=== PATIENT | male | born 1990 | race Caucasian/White ===

== ENCOUNTER 2018-06-30 20:59 | Emergency (ER) | payer SELFPAY ==
--- NOTE | 2018-06-30 21:00 | ER Report ---
History and Physical Time Seen By MD: 21:00 HPI/ROS CHIEF COMPLAINT: longterm clearance, cut on hand HISTORY OF PRESENT ILLNESS: This is a 27 year old male. He is here with [employer] for a longterm clearance. Hit a window at [employer]. Denies other injuries other than a small cut on right thenar area of palm. Does not want any cleaning, repair or other treatment. No other complaints. Allergies: Coded Allergies: No Known Drug Allergies (Unverified , 06/30/18) Home Meds No Active Prescriptions or Reported Meds Reviewed Nurses Notes: Yes Constitutional Vital Sign - Last 24 Hours 06/30/18 21:01 Temp 99.3 Pulse 87 Resp 14 B/P (MAP) 118/83 Pulse Ox 94 O2 Delivery Room Air Physical Exam General: Alert, no distress. Intoxicated. Eyes: Pupils equal and round no injection. ENT: Normal oral mucosa. Moist mucous membranes. Respiratory: Lungs are clear to auscultation. Cardiac: regular rate and rhythm Musculoskeletal: Extremities have full range of motion. Skin: Small 1cm cut in right thenar area of palm, bleeding controlled. DIFFERENTIAL DIAGNOSIS: After history and physical exam differential diagnosis was considered for longterm clearance, laceration on hand without repair, and intoxication. Medical Decision Making ED Course/Re-evaluation ED Course No other problems noted. He is cleared to be discharged with police to longterm. Patient states last tetanus was a few months ago. Decision to Disposition Date: June 30, 2018 Decision to Disposition Time: 21:04 Depart Departure Latest Vital Signs Vital Signs Date Time Temp Pulse Resp B/P (MAP) Pulse Ox O2 Delivery O2 Flow Rate FiO2 06/30/18 21:01 99.3 87 14 118/83 94 Room Air Impression: Primary Impression: Hand laceration Additional Impression: Intoxication Condition: Improved [facility] New Scripts No Active Prescriptions or Reported Meds Patient Instructions: Laceration Without Closure (ED) Additional Instructions: Wound Care: Wash the wound once a day with soap and water. Dry the wound and apply a small amount of antibiotic ointment with a clean dressing. If the dressing becomes wet or dirty, repeat cleaning and dressing as above. He can always return to the ER for further evaluation if this is looking like it is getting infected. Pain Control: Use Tylenol or ibuprofen for pain. Using and ice pack can help reduce swelling. Problem Qualifiers Primary Impression: Hand laceration Encounter type: initial encounter Foreign body presence: without foreign body Laterality: right Qualified Codes: S61.411A - Laceration without foreign body of right hand, initial encounter ZULEYMA MCCORMICK MD June 30, 2018 21:00
[2018-06-30 21:01] VITALS: BP 118/83
== END 2018-06-30 21:12 | disposition home or self-care (01) ==
LOC: ER 21:04
DX: S61.411A Laceration without foreign body of right hand, initial encounter (principal); F10.129 Alcohol abuse with intoxication, unspecified
CPT/HCPCS: 99281

== ENCOUNTER 2018-07-08 16:41 | Emergency (ER) | payer SELFPAY ==
[2018-07-08] MEDS ORDERED: OLANZapine 10 MG VIAL IM ONLY ONE (17:06)
[2018-07-08] MEDS ORDERED: WATER STERILE(*) 10 ML VIAL 10 ML ONE (17:06)
--- NOTE | 2018-07-08 17:34 | ER Report ---
History and Physical Time Seen By MD: 17:00 Hx. of Stated Complaint: PT PRESENTS WIH SLURRING WORDS, OCC PROFANITY, STUMBLING. FOUND ASLEEP IN A CAR THAT WAS NOT HIS HPI/ROS CHIEF COMPLAINT: Altered mental status, suspected alcohol intoxication HISTORY OF PRESENT ILLNESS: Patient is a 27-year-old male with suspected alcohol intoxication found sleeping in another individuals vehicle. Patient was initially evaluated by police on scene at which time the patient was speaking unintelligibly, not making sense, slurring his words. Patient did have a contusion with hematoma above his left eye prompting emergency department evaluation. Due to the patient's suspected injury, decision was made to complete a CT scan. Glucose was 96 at time of evaluation REVIEW OF SYSTEMS: Patient unwilling to verbalize Allergies: Coded Allergies: No Known Drug Allergies (Unverified , 07/08/18) Home Meds No Active Prescriptions or Reported Meds Unable To Obtain Past Medical: Unable to Obtain/Update Constitutional Vital Sign - Last 24 Hours 07/08/18 07/08/18 07/08/18 07/08/18 16:43 16:43 17:11 17:33 Pulse 123 ??? Resp 20 B/P (MAP) 131/72 131/72 (91) 130/65 (86) Pulse Ox 89 O2 Delivery Room Air 07/08/18 17:41 Pulse 107 Pulse Ox 96 Physical Exam General Appearance: Intoxicated appearing, protecting airway Eyes: Pupils equal and round no pallor or injection. ENT, Mouth: Mucous membranes are moist. Respiratory: There are no retractions, lungs are clear to auscultation. Cardiovascular: Regular rate and rhythm. Gastrointestinal: Abdomen is soft and non tender, no masses, bowel sounds normal. Neurological: Slurred speech, unintelligible speech at times, denies pain aside from handcuffs Skin: Mild ecchymosis and swelling above the left eye without bony deformity or laceration Musculoskeletal: Neck is supple non tender. Extremities are nontender, nonswollen and have full range of motion. DIFFERENTIAL DIAGNOSIS: After history and physical exam differential diagnosis was considered for alcohol intoxication, other substance use, concussion, trauma, intracranial process Medical Decision Making Data Points Laboratory Hematology Test 07/08/18 17:42 Whole Blood Glucose 96 mg/DL (75-110) Chemistry Test 07/08/18 17:42 Whole Blood Glucose 96 mg/DL (75-110) EKG/Imaging Imaging CT Head please see final radiology report. CT imaging showed no acute intracranial pathology or fractures ED Course/Re-evaluation ED Course Patient is 27-year-old male with suspected intoxication found in a vehicle that was not his. PD brought the patient in for evaluation and usp clearance since the patient did have evidence of trauma in the form of a hematoma with mild ecchymosis above the left eye. Glucose level was 96 at time of evaluation. Patient was given 5 mg of intramuscular Zyprexa in order to obtain a CT scan of the head. CT scan of the head was unremarkable intracranial bleed or fractures evident. Patient refused to complete review of systems however physical exam was remarkable for a hematoma and ecchymosis above the left eye, slurred speech, suspected intoxication. Patient remained in handcuffs as a precaution due to intermittent episodes of being belligerent and agitated. Patient was released in police custody Decision to Disposition Date: July 08, 2018 Decision to Disposition Time: 18:20 Depart Departure Latest Vital Signs Vital Signs Date Time Temp Pulse Resp B/P (MAP) Pulse Ox O2 Delivery O2 Flow Rate FiO2 07/08/18 17:41 107 96 07/08/18 17:33 130/65 (86) 07/08/18 16:43 20 Room Air Impression: Primary Impression: Intoxication Condition: Improved Disposition: HOME OR SELF-CARE New Scripts No Active Prescriptions or Reported Meds Patient Instructions: Abuse of Alcohol (ED) Additional Instructions: Please consider alcohol cessation. Please follow-up with her primary care provider in the next 7 days for reevaluation. AMI RICHARD DO July 08, 2018 17:34
[2018-07-08 18:30] VITALS: BP 120/69
--- NOTE | 2018-07-10 15:53 | RADIOLOGY IMAGING REPORT ---
FACILITY: [facility] - [place] PATIENT NAME: Va Briscoe : 1990 MR: [id number] V: [id number] EXAM DATE: ORDERING PHYSICIAN: AMI RICHARD TECHNOLOGIST: Location: [facility] [place] Patient: Va Briscoe : 1990 Visit/Account:[id number] Date of Sevice: 07/08/2018 CT OF THE BRAIN WITHOUT CONTRAST HISTORY: Altered mental status. Intoxicated. PROCEDURE: 3.0 mm contiguous axial sections were performed through the brain. Sagittal and coronal r eformats were submitted. COMPARISON: None FINDINGS: BRAIN: Brain and intracranial structures: There is no mass lesion, hemorrhage or acute infarct. Orbits (included portions): Normal. Scalp: Normal. Skull: Normal. Paranasal sinuses and mastoid air cells (included portions): Mild maxillary mucosal thickening on the right. IMPRESSION: No evidence of acute intracranial abnormality. One of the following dose optimization techniques was utilized in the performance of this exam: Autom ated exposure control; adjustment of the mA and/or kV according to the patient's size; or use of an i terative reconstruction technique. Specific details can be referenced in the facility's radiology C T exam operational policy. Report Dictated By: Ciro Munoz MD at 07/08/2018 6:07 PM Report E-Signed By: Ciro Munoz MD at 07/08/2018 6:14 PM WSN:[id number]
== END 2018-07-08 18:45 | disposition home or self-care (01) ==
LOC: EDUNIT# 16:41 → ER 16:47
DX: F10.920 Alcohol use, unspecified with intoxication, uncomplicated (principal); R47.81 Slurred speech; M79.89 Other specified soft tissue disorders
CPT/HCPCS: 36416; 70450; 82948; 96372; 99284; J3490

== ENCOUNTER 2018-09-15 20:38 | Observation (INO) | payer SELFPAY ==
[~2018-09-15] VITALS: Ht 180.3 cm; Wt 75.3 kg
[2018-09-15] MEDS ORDERED: NS(*) 0.9% 1000 ML BAG 1,000 ML IV ONE (20:42)
--- NOTE | 2018-09-15 20:42 | ER Report ---
History and Physical Time Seen By MD: 20:37 HPI/ROS CHIEF COMPLAINT: Suicidal ideation, overdose HISTORY OF PRESENT ILLNESS: 27-year-old intoxicated male brought in by police on emergency group home. Apparently he was intoxicated, having an argument with family members. He took a bottle of Prozac and tipped it up. Swallowing is significant amount of Prozac. He subsequently took a bottle of refrigerant for automobile air-conditioning system symptoms, spraying it in his mouth. Patient expressed suicidal ideation to 2 family members. He is now denying suicidal attempt or ideation. REVIEW OF SYSTEMS: Respiratory: No cough, no dyspnea. Cardiovascular: No chest pain, no palpitations. Gastrointestinal: No vomiting, no abdominal pain. Musculoskeletal: No back pain. Allergies: Coded Allergies: No Known Drug Allergies (Unverified , 07/08/18) Home Meds Reported Medications Fluoxetine Hcl (PROZAC) 20 Mg Capsule, 20 MG PO QDAY, CAPSULE 09/15/18 Reviewed Nurses Notes: Yes Old Medical Records Reviewed: Yes Constitutional Vital Sign - Last 24 Hours 09/15/18 09/15/18 09/15/18 09/15/18 20:38 20:39 20:48 20:53 Temp 98.7 Pulse 124 119 107 126 Resp 18 B/P (MAP) 139/101 Pulse Ox 88 91 89 O2 Delivery Room Air 09/15/18 09/15/18 09/15/18 09/15/18 20:58 21:00 21:03 21:08 Pulse 108 101 100 B/P (MAP) 137/81 (99) Pulse Ox 86 89 92 09/15/18 09/15/18 09/15/18 09/15/18 21:13 21:15 21:18 21:30 Pulse 99 B/P (MAP) 133/88 (103) 127/90 (102) Pulse Ox 84 91 09/15/18 09/15/18 09/15/18 09/15/18 21:45 22:00 22:15 22:30 B/P (MAP) 126/108 (114) 121/92 (102) 125/94 (104) 108/94 (99) 09/15/18 22:45 B/P (MAP) 112/79 (90) Physical Exam Vital signs stable, afebrile, pulse ox normal General Appearance: The patient is alert, has no immediate need for airway protection and no current signs of toxicity., Restless, anxious, refusing care because he says he can't afford it HEENT: Pupils equal and round no injection. Oropharynx without redness or exudate, heavy odor of EtOH Respiratory: Chest is non tender, lungs are clear to auscultation. Cardiac: regular rate and rhythm Gastrointestinal: Abdomen is soft and non tender, no masses, bowel sounds normal. Musculoskeletal: Neck: Neck is supple and non tender. No thyromegaly Extremities have full range of motion and are non tender. Skin: No rashes or lesions. DIFFERENTIAL DIAGNOSIS: After history and physical exam differential diagnosis was considered for depression including functional and major depression, situational depression, overdose, suicidal gesture, suicidal ideation, medication side effect, drugs and alcohol abuse. Medical Decision Making Data Points Result Diagram: 09/15/18211309/15/182113 Laboratory Hematology Test 09/15/18 21:14 White Blood Count 8.1 k/uL (4.5-11.0) Red Blood Count 5.15 M/uL (4.00-5.60) Hemoglobin 17.2 g/dL (14.0-18.0) Hematocrit 49.3 % (42.0-52.0) Mean Corpuscular Volume 95.8 fL (80.0-96.0) Mean Corpuscular Hemoglobin 33.4 pg (26.0-33.0) H Mean Corpuscular Hemoglobin Concent 34.9 g/dL (32.0-36.0) Red Cell Distribution Width 13.5 % (11.5-14.5) Platelet Count 327 K/uL (150-450) Mean Platelet Volume 7.6 fL (7.2-11.1) Neutrophils (%) (Auto) 57.5 % (39.4-72.5) Lymphocytes (%) (Auto) 36.9 % (17.6-49.6) Monocytes (%) (Auto) 3.5 % (4.1-12.4) L Eosinophils (%) (Auto) 1.3 % (0.4-6.7) Basophils (%) (Auto) 0.8 % (0.3-1.4) Nucleated RBC Relative Count (auto) 0.1 /100WBC Neutrophils # (Auto) 4.6 K/uL (2.0-7.4) Lymphocytes # (Auto) 3.0 K/uL (1.3-3.6) Monocytes # (Auto) 0.3 K/uL (0.3-1.0) Eosinophils # (Auto) 0.1 K/uL (0.0-0.5) Basophils # (Auto) 0.1 K/uL (0.0-0.1) Nucleated RBC Absolute Count (auto) 0.00 K/uL Chemistry Test 09/15/18 21:14 Sodium Level 144 mmol/L (137-145) Potassium Level 4.2 mmol/L (3.5-5.0) Chloride Level 105 mmol/L (98-107) Carbon Dioxide Level 26 mmol/L (22-30) Blood Urea Nitrogen 12 mg/dl (9-21) Creatinine 1.10 mg/dl (0.66-1.25) Glomerular Filtration Rate Calc > 60.0 Random Glucose 93 mg/dl (75-110) Calcium Level 10.2 mg/dl (8.4-10.2) Magnesium Level 2.3 mg/dl (1.7-2.2) Total Bilirubin 0.6 mg/dl (0.2-1.3) Aspartate Amino Transf (AST/SGOT) 26 U/L (0-35) Alanine Aminotransferase (ALT/SGPT) 34 U/L (0-56) Alkaline Phosphatase 111 U/L (0-126) Total Protein 7.9 g/dl (6.3-8.2) Albumin 5.0 g/dl (3.5-5.0) Toxicology Test 09/15/18 21:14 09/15/18 21:22 Salicylates Level < 10 mg/L Salicylate Last Dose Date unk Acetaminophen Level < 10 ug/ml Serum Alcohol 285 mg/dl Urine Opiates Screen Negative Urine Barbiturates Screen Negative Ur Tricyclic Antidepressants Screen Negative Urine Phencyclidine Screen Negative Urine Amphetamines Screen Negative Urine Benzodiazepines Screen Negative Urine Cocaine Screen Negative Urine Cannabinoids Screen Positive Urinalysis Test 09/15/18 21:22 Urine Color Yellow Urine Clarity Clear Urine pH 7.0 pH (4.8-9.5) Urine Specific [place] 1.009 Urine Protein Negative mg/dL (NEGATIVE) Urine Glucose (UA) Negative mg/dL (NEGATIVE) Urine Ketones Negative mg/dL (NEGATIVE) Urine Blood Negative (NEGATIVE) Urine Nitrite Negative (NEGATIVE) Urine Bilirubin Negative (NEGATIVE) Urine Urobilinogen Negative mg/dL (0.2-1.9) Urine Leukocyte Esterase Negative (NEGATIVE) Urine RBC None /HPF (0-2/HPF) Urine WBC 1 /HPF (0-5/HPF) Urine Squamous Epithelial Cells None /LPF (</=FEW) Urine Bacteria Negative /HPF (NONE-FEW) Urine Hyaline Casts Few /LPF (NONE-FEW) Urine Mucus Few /HPF (NONE-FEW) EKG/Imaging EKG Interpretation 12 lead EK Rhythm: Sinus tachycardia, rate 103 [place]: normal QRS: normal, no QRS widening, QTC is 406 ST segments: normal ED Course/Re-evaluation Clinical Indication for ER IV: Hydration, IV Access ED Course Patient was admitted to an examination room. H&P was done. The differential diagnoses was considered. Patient with overdose of alcohol and Prozac. Patient took an unknown number of Prozac 20 mg police brought in one tablet was not consumed. He was seen tipping a bottle and swallowing it, so an unknown number were ingested. If there were 30 tablets. He potentially could've taken 500 mg. Toxic ingestion is [id number], poison control was contacted, case #[id number]. They advise observation for 6-10 hours, watching for dizziness, nausea, vomiting, al tered mental status change, TRAINING MGR depression, seizures and serotonin syndrome QTc prolongation if QTc gets over 460. They advise magnesium, potassium and calcium calcium be administered. Patient was treated with IV fluid hydration 1 L.. Patient remained stable throughout his emergency department stay. Patient was admitted to ICU for close observation. 09/15/2018 10:22:26 pm case discussed with Dr. Hernandez Chapin hospitalist on- call, who accepts the patient for admission to ICU. Decision to Disposition Date: Sep 15, 2018 Decision to Disposition Time: 20:55 Critical Care Time I spent a total of 60 minutes of critical care time in obtaining history, performing a physical exam, bedside monitoring of interventions, collecting and interpreting tests and discussion with consultants but not including time spent performing procedures. Depart Departure Latest Vital Signs Vital Signs Date Time Temp Pulse Resp B/P (MAP) Pulse Ox O2 Delivery O2 Flow Rate FiO2 09/15/18 22:45 112/79 (90) 09/15/18 21:18 91 09/15/18 21:13 99 09/15/18 20:39 98.7 18 Room Air Impression: Primary Impression: Overdose Additional Impressions: Depression with suicidal ideation Alcohol intoxication Condition: Improved Disposition: Admitted from ER Title 25 Evaluation Date of Report: Sep 15, 2018 Patient Detained By: Law Enforcement Date Patient Detained: Sep 15, 2018 Time Patient Detained: 20:22 Date Jail Expires: Sep 20, 2018 Time Jail Expires: 20:22 Legal Status: Police Hold: No Legal Status: Relationship: Single Legal Status: Residence: [facility] Resident Assessment Data Provided By: Patient, Law Enforcement Chief Complaint: Alcohol intoxication, Prozac, overdose, suicidal gesture HPI/ROS: 27-year-old male run in by police on emergency group home after expressing suicidal ideation to 2 family members and taking a bottle of Prozac pills in front of them. Patient came home intoxicated on 5 or 6 drinks. He had argument with his mother and was expressing suicidal ideation that he wanted to . After taking a bottle of Prozac pills he took a bottle of air conditioning refrigerant recharge solution and was spraying puffs in his mouth. Diagnosis: Suicidal attempt/overdose. Prozac Alcohol intoxication Risk Formulation: Patient expressed suicidal ideation to 2 people. He made an overt gesture, taking a bottle of Prozac pills tonight while being intoxicated. Patient is very high risk. Emergency Medical/Psych Tx: Medically cleared in the emergency department. His vitals remained stable. Tox screen was positive for cannabis, blood alcohol level returned at 285. Current Dangerous Risk Assess: Current Suicide Ideation Current Risk Summary: Patient minute and overt gesture, suicidal attempt. He likely did not take a lethal dose, but could have his emergency group home will be upheld. Problem Qualifiers Primary Impression: Overdose Encounter type: initial encounter Injury intent: intentional self-harm Q ualified Codes: T50.902A - Poisoning by unspecified drugs, medicaments and biological substances, intentional self-harm, initial encounter Additional Impressions: Alcohol intoxication Complication of substance-induced condition: uncomplicated Qualified Codes: F10.920 - Alcohol use, unspecified with intoxication, uncomplicated MARGARETH DAMON DO Sep 15, 2018 20:42
--- NOTE | 2018-09-15 21:10 | EKG ---
FACILITY: [facility] PATIENT NAME: CY GLOVER : [id number] MR: [id number] V: [id number] EXAM DATE: ORDERING PHYSICIAN: MARGARETH DAMON TECHNOLOGIST: Test Reason : OD PROZAC Blood Pressure : / mmHG Vent. Rate : 103 BPM Atrial Rate : 103 BPM P-R Int : 152 ms QRS Dur : 086 ms QT Int : 310 ms P-R-T Axes : 064 078 050 degrees QTc Int : 406 ms Sinus tachycardia Otherwise normal ECG No previous ECGs available Confirmed by NONI YOUNGBLOOD ([id number]) on 09/15/2018 10:13:41 PM Referred By: Confirmed By:NONI YOUNGBLOOD
[2018-09-15 21:32] LABS: PLATELET COUNT, AUTOMATED 327 K/uL (150-450)
[2018-09-15] MEDS ORDERED: NICOTINE CARTRIDGE 1 EA PO ONE ×2 (21:54→23:08)
[2018-09-15] MEDS: NICOTINE INH SYSTEM 10 MG/INH INH PRN ×2 (22:04→23:51)
[2018-09-15] MEDS ORDERED: FLUO-202 PO (22:48)
[2018-09-15 23:15] VITALS: BP 121/72
[2018-09-15] MEDS ORDERED: INFLUENZA VIRUS VAC 0.5ML SYR IM ONLY ONE (23:30)
[2018-09-15] MEDS ORDERED: NICOTINE INH SYSTEM 10 MG/INH INH PRN (23:30)
[2018-09-15] MEDS: LORazepam 2 MG/ML VIAL IVP PRN (23:51)
--- NOTE | 2018-09-15 23:52 | History & Physical ---
History of Present Illness History of Present Illness 27yo male with a h/o depression and alcohol abuse was emergently detained and brought to the ER by the police for suicidal statements and ingestion of Prozac. The history from the ER provider/Police is that the patient was intoxicated and arguing with family. He was making suicidal statements. He then opened his bottle of Prozac 20mg swallowed an unknown amount. The bottle was brought in to determine the amount ingested. The ingestion occurred about 193. The patient reports that he had been drinking a pint of vodka since about 3pm. He wanted to "show it to the man, or really libertarian hard" so he took 8-9 pills of his Prozac. He denies any arguments with anybody or thought/statement of hurting himself. He denies any hospitalizations for pill ingestions/attempts to hurt himself. In November, he did spend time in an alcohol rehabilitation facility. He started drinking again in June. He does report some shakiness when he stops drinking, but no h/o seizures or hospitalizations. Poison control was notified and they recommend observing him for 6 hours to make sure he doesn't have any signs of t oxicity from the ingestion. He does use nicotine vaping products and smokes marijuana. History Problems: (1) Depression (2) Alcohol abuse Home Meds Reported Medications Fluoxetine Hcl (PROZAC) 20 Mg Capsule, 20 MG PO QDAY, CAPSULE 09/15/18 Allergies: Coded Allergies: No Known Drug Allergies (Unverified , 07/08/18) Other Social/Family Hx see hpi Review of Systems Other He is without complaints Exam Vital Signs Vital Signs Date Time Temp Pulse Resp B/P (MAP) Pulse Ox O2 Delivery O2 Flow Rate FiO2 09/15/18 22:45 112/79 (90) 09/15/18 21:18 91 09/15/18 21:13 99 09/15/18 20:39 98.7 18 Room Air General Appearance: Alert, Awake, No Acute Distress Eyes: PERRLA (Pupils about 6mm), Other ENT: Moist Mucous Membranes Cardiovascular: Regular Rate and Rhythm (borderline tachy) Respiratory: Clear to Auscultation GI: Abd Soft and Non-Tender Extremities: No Edema Integumentary: No Jaundice, No Cyanosis Medical Decision Making Data Points Result Diagram: 7211309/15/182113 Item Value Date Time Magnesium Level 2.3 mg/dl H 09/15/182113 Total Bilirubin 0.6 mg/dl 09/15/182113 Aspartate Amino Transf (AST/SGOT) 26 U/L 09/15/182113 Alanine Aminotransferase (ALT/SGPT) 34 U/L 09/15/182113 Alkaline Phosphatase 111 U/L 09/15/182113 Mean Corpuscular Volume 95.8 fL 09/15/182113 Neutrophils (%) (Auto) 57.5 % 09/15/182113 Lymphocytes (%) (Auto) 36.9 % 09/15/182113 Monocytes (%) (Auto) 3.5 % L 09/15/182113 Eosinophils (%) (Auto) 1.3 % 09/15/182113 Basophils (%) (Auto) 0.8 % 09/15/182113 Nucleated RBC Relative Count (auto) 0.1 /100WBC 09/15/182113 Urine RBC None /HPF 09/15/182121 Urine WBC 1 /HPF 09/15/182121 Urine Squamous Epithelial Cells None /LPF 09/15/182121 Urine Cannabinoids Screen Positive 09/15/182121 Serum Alcohol 285 mg/dl 09/15/182113 Acetaminophen Level < 10 ug/ml 09/15/182113 Salicylates Level < 10 mg/L 09/15/182113 EKG / Imaging EKG Interpretation Vent. Rate : 103 BPM Atrial Rate : 103 BPM P-R Int : 152 ms QRS Dur : 086 ms QT Int : 310 ms P-R-T Axes : 064 078 050 degrees QTc Int : 406 ms Sinus tachycardia Otherwise normal ECG No previous ECGs available Confirmed by NONI YOUNGBLOOD ([id number]) on 09/15/2018 10:13:41 PM Assessment and Plan Problems: (1) Overdose Status: Acute Assessment & Plan: He was brought to the ER after a witnessed ingestion of an u nknown amount of Prozac 20mg at about 1930. Poison control was contacted, case #[id number]. They advise observation for 6-10 hours, watching for dizziness, nausea, vomiting, QRS prolongation > 100ms and QTc prolongation > 460ms. ECG at 2044 had a normal QTc and QRS. He is getting repeat now. He will be watched in the ICU on telemetry. (2) Depression with suicidal ideation Status: Acute Assessment & Plan: He was reportedly in an argument with family and was making suicidal statement before taking the Prozac. He was detained by the Police Department. (3) Alcohol intoxication Status: Acute Assessment & Plan: He reports drinking a pint a day of vodka. His blood alcohol level was 285. He is currently doesn't appear intoxicated. No h/o seizures or DT's. He was in a rehabilitation facility in November, but started drinking again in June. He is at risk of alcohol withdrawal, but won't start checking unless he is going to be in the ICU into the afternoon tomorrow. Venous Thromboembolism Antithrombotics Is Pt On Any Antithrombotics?: No Exam Sepsis Risk: No Definite Risk Problem Qualifiers (1) Overdose: Encounter type: initial encounter Injury intent: intentional self-harm Qualified Codes: T50.902A - Poisoning by unspecified drugs, medicaments and biological substances, intentional self-harm, initial encounter (2) Alcohol intoxication: Complication of substance-induced condition: uncomplicated Qualified Codes: F10.920 - Alcohol use, unspecified with intoxication, uncomplicated NONI YOUNGBLOOD MD Sep 15, 2018 23:52
[2018-09-16] VITALS (17 sets, daily range): BP systolic 92–121; BP diastolic 46–83; Ht 180.3 cm; Wt 75.3 kg
--- NOTE | 2018-09-16 00:02 | EKG ---
FACILITY: [facility] [place] PATIENT NAME: CY GLOVER : [id number] MR: [id number]: [id number] EXAM DATE: ORDERING PHYSICIAN: NONI YOUNGBLOOD TECHNOLOGIST: MANFRED Test Reason : PROZAC OD Blood Pressure : / mmHG Vent. Rate : 085 BPM Atrial Rate : 085 BPM P-R Int : 138 ms QRS Dur : 094 ms QT Int : 340 ms P-R-T Axes : 071 085 060 degrees QTc Int : 404 ms Normal sinus rhythm Normal ECG When compared with ECG of 15-SEP-2018 20:45, No significant change was found Confirmed by NONI YOUNGBLOOD ([id number]) on 09/16/2018 12:05:27 AM Referred By: Confirmed By:NONI YOUNGBLOOD
[2018-09-16] MEDS: LORazepam 2 MG/ML VIAL IVP PRN (00:20)
[2018-09-16] MEDS ORDERED: DIAZEPAM 10 MG TAB PO PRN (00:45)
[2018-09-16] MEDS: DIAZEPAM 10 MG TAB PO PRN ×2 (00:52→01:49)
[2018-09-16] MEDS: NICOTINE INH SYSTEM 10 MG/INH INH PRN ×3 (01:34→17:11)
--- NOTE | 2018-09-16 03:28 | EKG ---
FACILITY: [facility] PATIENT NAME: CY GLOVER : [id number] MR: [id number] V: [id number] EXAM DATE: ORDERING PHYSICIAN: NONI YOUNGBLOOD TECHNOLOGIST: MANFRED Test Reason : PROZAC OD Blood Pressure : / mmHG Vent. Rate : 085 BPM Atrial Rate : 085 BPM P-R Int : 140 ms QRS Dur : 100 ms QT Int : 362 ms P-R-T Axes : 070 075 048 degrees QTc Int : 430 ms Normal sinus rhythm Normal ECG When compared with ECG of 15-SEP-2018 23:43, No significant change was found Confirmed by NONI YOUNGBLOOD ([id number]) on 09/16/2018 6:53:01 AM Referred By: Confirmed By:NONI YOUNGBLOOD
[2018-09-16 05:08] LABS: PLATELET COUNT, AUTOMATED 287 K/uL (150-450)
--- NOTE | 2018-09-16 07:10 | EKG ---
[place] [facility] [place] NAME: CY GLOVER : [id number] MR: [id number] V: [id number] EXAM DATE: ORDERING PHYSICIAN: NONI YOUNGBLOOD TECHNOLOGIST: Test Reason : overdose Blood Pressure : / mmHG Vent. Rate : 079 BPM Atrial Rate : 079 BPM P-R Int : 140 ms QRS Dur : 094 ms QT Int : 374 ms P-R-T Axes : 074 079 064 degrees QTc Int : 428 ms Normal sinus rhythm Normal ECG When compared with ECG of 16-SEP-2018 03:10, No significant change was found Confirmed by SUREKHA PIERRE ([id number]) on 09/16/2018 4:12:34 PM Referred By: Confirmed By:SUREKHA PIERRE
--- NOTE | 2018-09-16 08:52 | Hospitalist Progress Note ---
Subjective Progress Notes Subjective This patient was admitted for an SSRI overdose. Patient Complains of: Cardiovascular: No: Chest Pain Respiratory: No: Shortness of Breath Physical Exam Vital Signs Date Time Temp Pulse Resp B/P (MAP) Pulse Ox O2 Delivery O2 Flow Rate FiO2 09/16/18 08:00 77 7 98/63 (75) 87 Room Air 09/16/18 06:00 1.5 09/15/18 23:15 97.8 Intake and Output 09/16/18 07:03 Intake Total 400 ml Output Total 350 ml Balance 50 ml Intake Oral 400 ml Output Urine Total 350 ml Cardiovascular: Regular Rate and Rhythm Respiratory: Clear to Auscultation Result Diagram: 09/16/18 0451 09/16/18 045 Assessment and Plan Problems: (1) Overdose Status: Acute Assessment & Plan: He was brought to the ER after a witnessed ingestion of an unknown amount of Prozac 20mg at about 1930. Poison control was contacted, case #[id number]. They advise observation for 6-10 hours, watching for dizziness, nausea, vomiting, QRS prolongation > 100ms and QTc prolongation > 460ms. ECG at 2044 had a normal QTc and QRS. A repeat EKG this morning was unremarkable. (2) Depression with suicidal ideation Status: Acute Assessment & Plan: He was reportedly in an argument with family and was making suicidal statement before taking the Prozac. He was detained by the Police Department. (3) Alcohol intoxication Status: Acute Assessment & Plan: He is on CIWA protocol, but only required one dose of Valium. He has been started on thiamine. Exam Sepsis Risk: No Definite Risk Problem Qualifiers (1) Overdose: Encounter type: initial encounter Injury intent: intentional self-harm Qualified Codes: T50.902A - Poisoning by unspecified drugs, medicaments and biological substances, intentional self-harm, initial encounter (2) Alcohol intoxication: Complication of substance-induced condition: uncomplicated Qualified Codes: F10.920 - Alcohol use, unspecified with intoxication, uncomplicated SUREKHA PIERRE DO Sep 16, 2018 08:52
[2018-09-16] MEDS ORDERED: THIAMINE HCL 100 MG TAB PO SCH (09:30)
--- NOTE | 2018-09-16 10:49 | Hospitalist Depart ---
Discharge Summary Reason for Hosp/Final Diag: (1) Overdose Status: Acute Hospital Course & Plan: He was brought to the ER after a witnessed ingestion of an unknown amount of Prozac 20mg at about 1930. QRS prolongation > 100ms and QTc prolongation > 460ms. ECG at 2044 had a normal QTc and QRS. A repeat EKG this morning was unremarkable. (2) Depression with suicidal ideation Status: Acute Hospital Course & Plan: He was reportedly in an argument with family and was making suicidal statement before taking the Prozac. He was detained by the Police Department. (3) Alcohol intoxication Status: Acute Hospital Course & Plan: He is on CIWA protocol, but only required one dose of Valium. He has been started on thiamine. Departure Latest Vital Signs Vital Signs 09/16/18 09/16/18 06:00 09:00 Temp 98.4 Pulse 71 Resp 11 B/P (MAP) 95/62 (73) Pulse Ox 93 O2 Delivery Room Air O2 Flow Rate 1.5 Weight (Pounds): 166 Result Diagram: 09/16/1845009/16/18450 Condition: Improved Discharge: [facility] Discharge Instructions Home Meds Reported Medications Fluoxetine Hcl (PROZAC) 20 Mg Capsule, 20 MG PO QDAY, CAPSULE 09/15/18 Diet: Regular Activity: As Tolerated Venous Thromboembolism Antithrombotics Is Pt On Any Antithrombotics?: No Problem Qualifiers (1) Overdose: Encounter type: initial encounter Injury intent: intentional self-harm Qualified Codes: T50.902A - Poisoning by unspecified drugs, medicaments and b iological substances, intentional self-harm, initial encounter (2) Alcohol intoxication: Complication of substance-induced condition: uncomplicated Qualified Codes: F10.920 - Alcohol use, unspecified with intoxication, uncomplicated SUREKHA PIERRE DO Sep 16, 2018 10:49
--- NOTE | 2018-09-16 18:29 | BHS - Psychiatric Evaluation ---
ER - Title 25 MHE Evaluation Title 25 Evaluation Patient Detained By: Physician (Physician, Dr. Tulio Thayer upheld this [place] [facility]), Law Enforcement ([place] initiated this [place] [facility]) Referral Source: Professional: Law Enforcement Date Patient Detained: Sep 15, 2018 Time Patient Detained: 20:22 Date Fpc Expires: Sep 20, 2018 Time Fpc Expires: 20:22 Legal Status: Police Hold: No Legal Status: Residence: [facility] Resident, State Resident Assessment Data Provided By: Patient, Other Source (Electronic Medical record) HPI/ROS: 27-year-old male run in by police on emergency [facility] after expressing suicidal ideation to 2 family members and taking a bottle of Prozac pills in front of them. Patient came home intoxicated on 5 or 6 drinks. He had argument with his mother and was expressing suicidal ideation that he wanted to . After taking a bottle of Prozac pills he took a bottle of air conditioning refrigerant recharge solution and was spraying puffs in his mouth. Admit due to SI or Attempt: Yes Suicide Plan: Has Plan with Access Alcohol or Drugs Involved: Yes (patient acknowledges daily drinking) Is Patient Info Reliable: Yes Is Collateral Info Reliable: Yes (3-81) Current Home Psych Meds: Prozac Mental Status Exam General Appearance: Casual, Good Eye Contact, Polite Speech: Clear Mood: Dysthmic/Depressed Affect: Sad Thought Process: Goal Directed (Wants to go to work on Tuesday) Thought Content: Suicidal Ideation (Denies) Cognition: Alert & Oriented-Person, Alert & Oriented-Place Insight Judgment: Poor Sleep: Hypersomnia Hallucinations: Denies Delusions: Denies Current Risk & History Current Dangerous Risk Assessm: Current Suicide Ideation (Denies), Self- Injurious Behaviors (Daily drinking with poor judgement and dangerous associated behaviors ) Past Dangerous Risk Assessm: Suicide Ideation-last 6mo (Denies) Previous Suicide Attempt: No Previous Attempt Previous Psychiatric Illness: Yes (Patient says he has been to inpatient rehabilitation from severe alcohol use disorder twice in [place]) Previous Psychiatric Treatment: Yes (Patient says he has been to inpatient rehabilitation from severe alcohol use disorder twice in [place]) Risk Assessment & Disposition Evaluated Risk Assessment: Per Dr. Thayer, "Patient expressed suicidal ideation to 2 people. He made an overt gesture, taking a bottle of Prozac pills tonight while being intoxicated. Patient is very high risk." Impression: Primary Impression: Overdose Additional Impressions: Alcohol intoxication Depression with suicidal ideation Meets Mental Illness Req.: Yes Meets Dangerousness Req.: Yes Emergency Fpc to be: Upheld Decision Comment: Per Dr. Thayer, "Patient expressed suicidal ideation to 2 people. He made an overt gesture, taking a bottle of Prozac pills tonight while being intoxicated. Patient is very high risk. Patient minute and overt gesture, suicidal attempt. He likely did not take a lethal dose, but could have his emergency [place] [facility] will be upheld." Date of Decision: Sep 16, 2018 Time of Decision: 18:25 Patient is Medically Stable at: Yes Disposition: [facility] Problem Qualifiers Primary Impression: Overdose Encounter type: initial encounter Injury intent: intentional self-harm Qualified Codes: T50.902A - Poisoning by unspecified drugs, medicaments and biological substances, intentional self-harm, initial encounter Additional Impressions: Alcohol intoxication Complication of substance-induced condition: uncomplicated Qualified Codes: F10.920 - Alcohol use, unspecified with intoxication, uncomplicated CAROLANN GUAN CHEF MANAGER Sep 16, 2018 18:29
[2018-09-17] MEDS ORDERED: MIRT-22 PO (12:21)
[2018-09-17] MEDS ORDERED: NIC10R INH (12:28)
== END 2018-09-16 10:47 ==
LOC: ER 20:41 → ICU 22:48 → INTOOBSV 22:48
PROVIDERS: ADMIT Internal Medicine; ATTEND Internal Medicine
DX: T43.222A Poisoning by selective serotonin reuptake inhibitors, intentional self-harm, initial encounter (principal); F10.920 Alcohol use, unspecified with intoxication, uncomplicated; Y90.8 Blood alcohol level of 240 mg/100 ml or more; F32.9 Major depressive disorder, single episode, unspecified; R00.0 Tachycardia, unspecified
CPT/HCPCS: 36415; 80305; 80320; 80329; 81001; 83735; 84443; 85025; 93005; 96360; 99291; G0378; J2060; J7030; 82040; 82247; 82310; 82374; 82435; 82565; 82947; 84075; 84132; 84155; 84295; 84450; 84460; 84520

== ENCOUNTER 2018-09-16 18:15 | Inpatient (IN) | payer SELFPAY ==
[~2018-09-16] VITALS: Ht 180.3 cm; Wt 75.7 kg
[2018-09-16 10:19] VITALS: Ht 180.3 cm; Wt 75.7 kg
[~2018-09-16 18:15] MED LIST: FLUO-202 PO
[2018-09-16] MEDS ORDERED: NICOTINE INH SYSTEM 10 MG/INH INH PRN (19:15)
[2018-09-16] MEDS ORDERED: MAG HYD/AL HYD/SIMETH 30ML UDC PO PRN (19:15)
[2018-09-16] MEDS ORDERED: NICOTINE CARTRIDGE 1 EA PO PRN (19:15)
[2018-09-16] MEDS ORDERED: ACETAMINOPHEN 325 MG TAB PO PRN (19:15)
[2018-09-16 19:25] VITALS: BP 132/87
[2018-09-16] MEDS: DIAZEPAM 10 MG TAB PO PRN ×2 (19:55→21:56)
[2018-09-16 21:53] VITALS: BP 128/71
[2018-09-17 06:00] VITALS: BP 121/85
[2018-09-17] MEDS ORDERED: FOLIC ACID 1 MG TAB PO SCH (09:00)
[2018-09-17] MEDS ORDERED: MULTIVITAMINS TAB PO SCH (09:00)
[2018-09-17] MEDS ORDERED: THIAMINE HCL 100 MG TAB PO SCH (09:00)
[2018-09-17] MEDS ORDERED: MIRT-22 PO (12:21)
[2018-09-17] MEDS ORDERED: NIC10R INH (12:28)
--- NOTE | 2018-09-18 03:36 | HISTORY AND PHYSICAL ---
DATE OF ADMISSION: September 16, 2018 DATE OF DISCHARGE: September 17, 2018 The patient was interviewed on September 17, 2018, at 10 a.m. for this history and physical as well as discharge summary. CHIEF COMPLAINT "More or less my mother was freaking out. I was intoxicated. I got in an argument and I took four or five Prozac pills. Then she called the police." HISTORY OF PRESENT ILLNESS This is the first-ever psychiatric hospitalization for this 27-year-old male, who is admitted on an involuntary shelter which was initiated by the police after a suicidal gesture. The patient says that he was not suicidal but that he wanted to get a rise out of his mother because they were arguing. He had a bottle of Prozac that he said only had four or five pills in it, and during the argument he put this up to his mouth and swallowed them. Then he picked up a bottle of air conditioner refresh spray and sprayed it. He says he did not spray it in his mouth, although apparently his mother told the police that he did spray it in his mouth. He says emphatically this was not a suicide attempt. He says he was intoxicated on alcohol, and he is very remorseful that he did drink alcohol and that he did argue with his family. He stated that he feels like his suicidal gesture would never have occurred if he had not been intoxicated. The patient was detained by the police and brought to the emergency room after the incident. He was admitted to ICU for monitoring because it was unclear how much Prozac he had taken. He was medically stabilized in the ICU and then transferred to [facility] on September 16. PAST PSYCHIATRIC HISTORY The patient has a history of alcohol abuse and entered a six-month rehab program voluntarily in November 2017. He completed this successfully and then was released. However, he relapsed shortly after release, so he called the treatment center and they did refer him for two more months of rehab treatment at a place called [facility] in [place], [place]. He completed this program successfully. He has been attending AA meetings. He has never had a suicide attempt. He does acknowledge vague suicidal thoughts on and off over the years, but never any intention or plan. In the past, he saw a counselor in [place] named Telma Liz, but has not seen her in quite a while. MEDICATIONS The patient was put on Prozac 20 mg daily while he was in rehab last fall, and did take it for several months but says he never noticed any particular benefit to his mild to moderate depression and anxiety, which has been chronic for him. For the past one month, he has not been taking it and has not noticed any ill effect with being off of it. FAMILY HISTORY One cousin had alcohol use disorder and by suicide. He knows of no other family psychiatric history. SOCIAL HISTORY The patient was born in [place], [place]. He has several brothers and sisters. His parents were and still are. He grew up in the [employer], but is no longer a member. He says he had a good childhood and got along well with his family members. They later moved to [place], and he graduated from [employer]. He attended almost two years of community college at [employer] in [place]. He had a long-term girlfriend who was the one who encouraged him to go to rehab for alcohol abuse, but he is no longer seeing her. He describes a conflicted relationship with his mother, who he feels sometimes enables him. 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 He gets along well with his roommates and likes his job. SUBSTANCE ABUSE HISTORY The patient first drank alcohol around the age of 20. At that time he experimented with several different drugs between the ages of 20 and 23, including Xanax, Adderall, crack, methamphetamine, ecstasy, mushrooms, and LSD. He denies any history of intravenous drug abuse. Since the age of 23, he has not used these other substances other than alcohol and occasionally cannabis. In the past month, he says, he has been using cannabis, one puff every night at bedtime, to help him sleep and to help him with anxiety. He has been drinking beer on and off and is struggling to get back on what he calls his "recovery plan." He intends to get back to more AA meetings. ABUSE HISTORY None. The patient denies any history of physical or sexual abuse. LEGAL HISTORY The patient had two misdemeanors during college for possession of less than 1 g of marijuana. The patient had a felony charge for breaking a window, which he says was an accident, and he is working on getting the charge dismissed. MENTAL STATUS EXAMINATION The patient was well groomed and cooperative. He displayed good eye contact. His speech was normal in rate, tone and volume. He was earnest and forthcoming with history. Mood and affect were euthymic. He smiled appropriately at times. Thought process was logical and goal directed. Thought content was negative for current suicidal ideation, homicidal ideation, auditory hallucinations, visual hallucinations, and delusions. He again reiterates that he was not suicidal on the night of admission. He is alert and fully oriented to person, place, time, and situation. Memory is intact for immediate, recent, and remote recall. Intelligence is average based on interview. Insight and judgment are good. The patient displays a great deal of remorse for relapsing to alcohol and for the incident with his mother, and is again verbalizing a commitment to sobriety. HOSPITAL COURSE The patient was treated on S for less than 24 hours. His interactions with staff at all times were appropriate. He talked a lot about his "recovery plan" that he has built, and how he wants to get back to AA meetings. 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 At no time was there any concern for suicidal ideation. The patient was very concerned because today is Tuesday and he wanted to get back to work Tuesday morning. The team felt comfortable with discharging him with outpatient followup in the [facility] to include AA meetings. DIAGNOSES Alcohol use disorder, moderate. Persistent depressive disorder, mild. DISCHARGE MEDICATIONS Remeron 15 mg, one tablet at bedtime, for the treatment of mild anxiety, persistent depression, and insomnia. FOLLOWUP The patient will follow up with AA meetings in the [place] area. [place]
== END 2018-09-17 13:35 | disposition home or self-care (01) | DRG 897 ==
LOC: BHS 18:15
PROVIDERS: ADMIT Psychiatry & Neurology Psychiatry; ATTEND Psychiatry & Neurology Psychiatry
DX: F10.220 Alcohol dependence with intoxication, uncomplicated (principal); R45.851 Suicidal ideations; F34.1 Dysthymic disorder; Z72.89 Other problems related to lifestyle; Z62.820 Parent-biological child conflict; Y90.8 Blood alcohol level of 240 mg/100 ml or more